=== PATIENT | female | born 1965 | race Caucasian/White ===

== ENCOUNTER 2020-02-15 14:44 | Emergency (ER) | payer MEDICAID ==
[~2020-02-15] VITALS: Ht 139.7 cm; Wt 81.8 kg
[2020-02-15] MEDS ORDERED: ACET-2865 PO (14:52)
[2020-02-15 16:55] VITALS: BP 134/83
[2020-02-15] MEDS ORDERED: KETOROLAC TROMETHAMINE 30 MG/ML VIAL IM ONE (17:00)
== END 2020-02-15 19:17 | disposition home or self-care (01) ==
LOC: EMS 14:49
DX: S82.52XA Displaced fracture of medial malleolus of left tibia, initial encounter for closed fracture (principal); S82.832A Other fracture of upper and lower end of left fibula, initial encounter for closed fracture; W01.0XXA Fall on same level from slipping, tripping and stumbling without subsequent striking against object, initial encounter; Y93.89 Activity, other specified; Y92.89 Other specified places as the place of occurrence of the external cause; Y99.8 Other external cause status
CPT/HCPCS: 29515; 73564; 73610; 73630; 96372; 99284; J1885

== ENCOUNTER 2020-10-08 11:25 | Emergency (ER) | payer MEDICAID ==
[~2020-10-08] VITALS: Ht 139.7 cm; Wt 81.8 kg
[~2020-10-08 11:25] MED LIST: ACET-2247 PO
[2020-10-08] MEDS ORDERED: IBUPROFEN 400 MG TABLET PO ONE (13:30)
[2020-10-08] MEDS ORDERED: ACETAMINOPHEN 325 MG TABLET PO ONE (13:30)
[2020-10-08 16:19] VITALS: BP 119/71
== END 2020-10-08 16:38 | disposition home or self-care (01) ==
LOC: EMS 11:27
DX: S93.402A Sprain of unspecified ligament of left ankle, initial encounter (principal); X50.9XXA Other and unspecified overexertion or strenuous movements or postures, initial encounter; Y93.89 Activity, other specified; Y92.89 Other specified places as the place of occurrence of the external cause; Y99.8 Other external cause status
CPT/HCPCS: 29515; 99284; 73590-TC; 73610-TC; Z7502; Z7610